=== PATIENT | female | born 1985 | race Two or more races ===

== ENCOUNTER 2020-09-26 08:12 | Emergency (ER) | payer OTHER ==
[~2020-09-26] VITALS: Ht 165.1 cm; Wt 63.5 kg
[~2020-09-26 08:12] MED LIST: CATAFLAM50 MG PO; CLARITIN10 MG PO; LEVSIN/SL0.125 MG; MAXIMUM DAILY1 EACH PO; MIRALAX510 GM PO; MOTRIN800 MG PO; NEO-POLYCIN HC3.5 GM OP; ORPH100T PO; PRILOSEC OTC20 MG PO; SKELAXIN800 MG PO; TYLENOL ARTHRI650 MG PO; ZYRTEC10 MG PO
[2020-09-26] MEDS ORDERED: ZITHROMAX500 MG PO (13:08)
[2020-09-26] MEDS ORDERED: VITAMIN C1000 M2 PO (13:13)
[2020-09-26] MEDS ORDERED: ZINC50 M2 PO (13:13)
[2020-09-26] MEDS ORDERED: ECHINACEA400 MG PO (13:13)
[2020-09-26] MEDS ORDERED: MELATONIN5 M1 PO (13:13)
== END 2020-09-26 13:28 | disposition home or self-care (01) ==
LOC: ER 08:12
DX: U07.1 COVID-19 (principal); B96.0 Mycoplasma pneumoniae [M. pneumoniae] as the cause of diseases classified elsewhere; B33.8 Other specified viral diseases

== ENCOUNTER → 2021-05-29 | Outpatient (CLI) | payer OTHER ==
[~2021-05-29] MED LIST changes: +ECHINACEA400 MG PO; +MELATONIN5 M1 PO; +VITAMIN C1000 M2 PO; +ZINC50 M2 PO; +ZITHROMAX500 MG PO
== END | disposition home or self-care (01) ==
LOC: MRI 07:15
DX: E22.1 Hyperprolactinemia (principal)
CPT/HCPCS: 70552